=== PATIENT | male | born 1985 | race Asian ===

== ENCOUNTER → 2017-12-16 | Outpatient (CLI) | payer OTHER ==
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
== END ==
LOC: HRAD 09:36
PROVIDERS: ATTEND Family Medicine
DX: M79.671 Pain in right foot (principal)
CPT/HCPCS: 73630